=== PATIENT | female | born 1970 | race Caucasian/White ===

== ENCOUNTER 2016-11-25 21:04 | Emergency (ER) | payer BC, MEDICAID ==
[2016-11-25 21:12] VITALS: TEMP 97.5
[2016-11-25 21:13] VITALS: BMI 34.7
--- NOTE | 2016-11-25 21:22 | EDPRACDOC ---
- General Information Chief Complaint: Upper Extremity Injury Stated Complaint: ARM PAIN Time Seen by Provider: 11/25/16 21:16 Home Medications: Home Medications Amlodipine [Norvasc] 10 mg PO DAILY 08/30/15 Levothyroxine Sodium [Synthroid] 50 mcg PO DAILY 08/30/15 Metformin HCl 500 mg PO BID 08/30/15 Acetaminophen Ex Str Tablet [TYLENOL EXTRA STRENGTH Tablet] 500 - 1,000 mg PO Q6H PRN 10/28/15 Cholecalciferol (Vitamin D3) [Vitamin D] 5,000 unit PO DAILY 10/28/15 Ibuprofen Tablet [Advil] 200 - 400 mg PO Q6H PRN 10/31/15 Oxycodone Immediate Release [Oxycodone Immediate Release (OxyIR)] 1 - 2 tab PO Q6H PRN 10/31/15 Promethazine [Phenergan] 25 mg PO Q4H PRN 10/31/15 Cyclobenzaprine HCl [Flexeril] 10 mg PO TID PRN #20 tablet 11/25/16 Hydrocodone Bit/Acetaminophen [Hydrocodon-Acetaminophen 5-325] 1 tab PO Q6 PRN # 20 tab 11/25/16 Prednisone [Deltasone, Orasone] 40 mg PO DAILY 5 Days 11/25/16 Allergies/Adverse Reactions: Allergies Allergy/AdvReac Type Severity Reaction Status Date / Time moxifloxacin HCl Allergy Rash-Genera Verified 10/31/15 06:34 [From Avelox] lized Penicillins Allergy Rash-Genera Verified 10/31/15 06:34 lized - History of Present Illness Onset: 2 DAYS HPI: PT COMPLAINS OF THROBBING, ACHING, AND SHARP PAIN FROM LEFT NECK RADIATING DOWN TO LEFT HAND, PAIN IS WORSE WITH ANY MOVEMENT OF THE ARM, NO KNOWN INJURY, NO FEVER OR CHILLS, NO N/V/D, USING OTC MEDS WITHOUT RELIEF. Description: Reports: At Rest Location: Reports: Left, Lateral, Anterior Circumstances: Reports: Spontaneous Relevant History: Reports: None Dominant Hand: Right Pain Severity: Severe Able to Move Shoulder?: Yes Associated Signs & Symptoms: Reports: Swelling, Neck pain, Arm pain, Elbow pain. Denies: Abrasion, Numbness, Chest pain ED Past Medical History - History Reviewed Yes Nurses notes reviewed and agree except as marked - Patient Medical History Cardiac History: Reports: Hypertension Musculoskeletal History: Reports: Arthritis Systemic History: Reports: Diabetes, Hypothyroidism Surgical History: Reports: Cholecystectomy (2008) - Family Medical History Reports: Hypertension (PARENTS), Diabetes (GP), Stroke (FATHER). Denies: Cancer (MATERNAL GP UNKNOWN TYPE), Cardiac Disorders - Social Medical History Smoking Status: Never smoker EDM Review of Systems - Review of Systems Neurological: negative: Dizziness, Numbness, Weakness Musculoskeletal: Elbow, Forearm, Hand, Shoulder Integumentary: No Symptoms Reported - Physical Exam Constitutional: Alert (Awake), No apparent distress Oriented to: Time, Person, Place Last recorded Vital Signs: Last Vital Signs Temp 97.5 F 11/25/16 21:12 Pulse 98 11/25/16 21:12 Resp 18 11/25/16 21:12 BP 171/97 11/25/16 21:12 Pulse Ox 99 11/25/16 21:12 Oxygen Pulse Oxygen Saturation 99 O2 Device Oxygen Flow Rate Fraction of Inspired Oxygen ( FIO2) - HEENT Head: Normal ( normocephalic) - Integumentary Skin: Normal, Warm, Dry Lymphatics: Normal (no adenopathy) - Neurologic Memory Impaired: Normal Motor Function: Normal (Normal tone, Pulses 2+ No cyanosis or edema, FROM) Cranial Nerve: Normal (CN II-X11 intact sensation, strength 5/5) Cerebellar: Normal Mood Description: Normal Perception: Normal ED Shoulder Problem Exam - Musculoskeletal Clavicle: Normal, Tender. negative: Swelling, Ecchymosis, Deformity Shoulder: Limited ROM, Tender. negative: Swelling, Ecchymosis, Deformity, Dislocation Arm: Moderate Tenderness. negative: Swelling, Deformity Distal Function/Circulation: Normal, Capillary Refill. negative: Motor Deficit , Pulse Deficit, Sensory Deficit - Differential Diagnosis Arthritis, Cervical disc disease, Impingement syndrome - Diagnostic Imaging C-SPINE Image interpreted by: Radiologist CERVICAL SPINE - COMPLETE 4+ VIEW COMPARISON: None. FINDINGS: Prevertebral soft tissue calcification anterior to the C1 and C2 vertebra, differential diagnostic considerations include heterotopic ossification or calcific tendinitis of the longus colli muscle. Ossification of the anterior longitudinal ligament is less likely given the distance between the vertebra and the calcification. No vertebral subluxation is observed. Intervertebral disc spaces are maintained. Anterior intervertebral spurring at C5-6 and C6-7 with posterior osseous ridging at C4-5 and C5-6. Uncinate and facet spurring are thought to be present at the C3-4 and C4-5 levels, probably causing osseous foraminal stenosis. No fracture identified. IMPRESSION: 1. Considerable cervical spondylosis with uncinate and facet spurring believed to be causing osseous foraminal stenosis at C3-4 and C4-5 bilaterally. There is posterior osseous ridging at C4-5 and C5-6. 2. Abnormal prevertebral soft tissue calcification anterior to the C1 and C2 vertebra. Top differential diagnostic considerations are prevertebral heterotopic calcification (as can be encountered in setting of radiation therapy or prior remote inflammation) or calcific tendinitis of the longus colli muscle. Decision Time to Discharge: 22:12 - Departure Disposition: Home Condition: Stable Final Diagnosis: Cervical radiculopathy Instructions: Cervical Radiculopathy (ED) Education/Counseling Given To: Patient Education/Counseling Given Regarding: Diagnosis, Treatment, Prognosis, Follow Up Referrals: Jamila Corona PA [Primary Care Provider] - One Week Mark Hu DO [Staff Physician] - One Week Prescriptions: Cyclobenzaprine HCl [Flexeril] 10 mg PO TID PRN #20 tablet PRN Reason: Muscle Spasms Hydrocodone Bit/Acetaminophen [Hydrocodon-Acetaminophen 5-325] 1 tab PO Q6 PRN # 20 tab PRN Reason: Pain Prednisone [Deltasone, Orasone] 40 mg PO DAILY 5 Days Forms: Excuse Note Additional Instructions: APPLY WARM COMPRESSES TO AREAS OF SORENESS 20 MINS AT A TIME 4 - 5 TIMES DAILY NEEDED FOR PAIN, WEAR SLING NEEDED FOR COMFORT. ED Neck Injury Exam - Neurologic Oriented to: Time, Person, Place Mood Description: Normal - HEENT Neck Meningeal: Normal. no: Meningeal Signs, Adenopathy, Thyromegaly - Musculoskeletal Distal Function: Normal, Capillary Refill. negative: Motor Deficit, Pulse Deficit, Sensory Deficit NV Function: Normal - Integumentary Skin: Normal Lymphatics: Normal
[2016-11-25] MEDS ORDERED: HYDROCODONE 5 MG/ACETAMIN 325 MG TAB PO ONE (21:28)
--- NOTE | 2016-11-25 22:09 | DIRPT ---
CLINICAL DATA: Left neck and arm pain starting on Raphael, progressively worsening. No injury. EXAM: CERVICAL SPINE - COMPLETE 4+ VIEW COMPARISON: None. FINDINGS: Prevertebral soft tissue calcification anterior to the C1 and C2 vertebra, differential diagnostic considerations include heterotopic ossification or calcific tendinitis of the longus colli muscle. Ossification of the anterior longitudinal ligament is less likely given the distance between the vertebra and the calcification. No vertebral subluxation is observed. Intervertebral disc spaces are maintained. Anterior intervertebral spurring at C5-6 and C6-7 with posterior osseous ridging at C4-5 and C5-6. Uncinate and facet spurring are thought to be present at the C3-4 and C4-5 levels, probably causing osseous foraminal stenosis. No fracture identified. IMPRESSION: 1. Considerable cervical spondylosis with uncinate and facet spurring believed to be causing osseous foraminal stenosis at C3-4 and C4-5 bilaterally. There is posterior osseous ridging at C4-5 and C5-6. 2. Abnormal prevertebral soft tissue calcification anterior to the C1 and C2 vertebra. Top differential diagnostic considerations are prevertebral heterotopic calcification (as can be encountered in setting of radiation therapy or prior remote inflammation) or calcific tendinitis of the longus colli muscle. Electronically Signed By: Chay Watt M.D. On: 11/25/2016 22:06
[2016-11-25 22:47] VITALS: BP 141/87; PULSE 76
== END 2016-11-25 22:28 | disposition home or self-care (01) ==
LOC: EDMC 21:04
DX: M54.12 Radiculopathy, cervical region (principal)
CPT/HCPCS: 72050; 99283; J3490

== ENCOUNTER 2016-11-28 20:27 | Emergency (ER) | payer MEDICAID ==
[2016-11-28 20:35] VITALS: BP 163/87; PULSE 80; TEMP 98; BMI 34.0
--- NOTE | 2016-11-28 21:03 | EDPRACDOC ---
- General Information Chief Complaint: Shoulder Pain Stated Complaint: LEFT ARM PAIN Time Seen by Provider: 11/28/16 20:50 Information Source: Patient Mode of Arrival: Car Home Medications: Home Medications Amlodipine [Norvasc] 10 mg PO DAILY 08/30/15 Levothyroxine Sodium [Synthroid] 50 mcg PO DAILY 08/30/15 Metformin HCl 500 mg PO BID 08/30/15 Acetaminophen Ex Str Tablet [TYLENOL EXTRA STRENGTH Tablet] 500 - 1,000 mg PO Q6H PRN 10/28/15 Cholecalciferol (Vitamin D3) [Vitamin D] 5,000 unit PO DAILY 10/28/15 Ibuprofen Tablet [Advil] 200 - 400 mg PO Q6H PRN 10/31/15 Oxycodone Immediate Release [Oxycodone Immediate Release (OxyIR)] 1 - 2 tab PO Q6H PRN 10/31/15 Promethazine [Phenergan] 25 mg PO Q4H PRN 10/31/15 Cyclobenzaprine HCl [Flexeril] 10 mg PO TID PRN #20 tablet 11/25/16 Hydrocodone Bit/Acetaminophen [Hydrocodon-Acetaminophen 5-325] 1 tab PO Q6 PRN # 20 tab 11/25/16 Prednisone [Deltasone, Orasone] 40 mg PO DAILY 5 Days 11/25/16 Diazepam [Valium] 5 mg PO TID #20 tablet 11/28/16 Oxycodone Immediate Release [Oxycodone Immediate Release (OxyIR)] 5 - 10 mg PO Q6H PRN #15 tab 11/28/16 Allergies/Adverse Reactions: Allergies Allergy/AdvReac Type Severity Reaction Status Date / Time moxifloxacin HCl Allergy Rash-Genera Verified 11/28/16 20:42 [From Avelox] lized Penicillins Allergy Rash-Genera Verified 11/28/16 20:42 lized - History of Present Illness Onset: 5 days HPI: PT STATES SEEN HERE 2-3 DAYS AGO FOR SAME LEFT SIDED NECK PAIN THAT RADIATES DOWN HER LEFT ARM FEELS LIKE A PULLING PAIN ON LEFT SIDE. Description: Reports: With Use, At Rest Location: Reports: Left, Lateral Circumstances: Reports: Spontaneous Relevant History: Reports: None Tetanus Up To Date?: No Dominant Hand: Right Pain Severity: Moderate Able to Move Shoulder?: Yes Associated Signs & Symptoms: Reports: Arm pain (LEFT) ED Past Medical History - History Reviewed Yes Nurses notes reviewed and agree except as marked Travel Outside of [place] in the Last 3 Months?: No - Patient Medical History Cardiac History: Reports: Hypertension, Hypercholesterolemia Musculoskeletal History: Reports: Arthritis Psychological History: Denies: Depression Systemic History: Reports: Diabetes, Hypothyroidism Surgical History: Reports: Appendectomy, Cholecystectomy (2008) - Family Medical History Reports: Hypertension (PARENTS), Diabetes (GP), Stroke (FATHER). Denies: Cancer (MATERNAL GP UNKNOWN TYPE), Cardiac Disorders - Social Medical History Smoking Status: Never smoker ETOH: None Substance Abuse: None Lives With: Other Lives In: Home EDM Review of Systems - Review of Systems ROS Negative Except as Marked: Yes All systems reviewed and were negative except as marked Constitutional: No Symptoms Reported. negative: Fever, Chills, Weakness, Fatigue, Loss of Appetite Eyes: No Symptoms Reported. negative: Redness, Blurred Vision, Double Vision, Discharge, Pain, Light Sensitive, Photophobia Ears: No Symptoms Reported. negative: Pain, Hearing Loss, Drainage, Ear Pulling Throat: No Symptoms Reported. negative: Pain, Swelling Nose: No Symptoms Reported. negative: Congestion, Bleeding, Discharge, Injection, Swelling, Deformity, Ecchymosis, Tender, Abrasion, Laceration Mouth: No Symptoms Reported. negative: Pain, Drooling Respiratory: No Symptoms Reported. negative: Cough, Brassy Cough, Barky Cough, Shortness of Breath, Wheezing, Hemoptysis Cardiovascular: No Symptoms Reported. negative: Chest Pain, Palpitations, Syncope, Edema, Orthopnea, PND, Skin Mottling, Cyanosis Gastrointestinal: No Symptoms Reported. negative: Pain, Constipation, Nausea, Vomiting, Diarrhea, Melena, Formula Intolerance Genitourinary: No Symptoms Reported. negative: Dysuria, Hematuria, Frequency, Discharge, Bleeding, Testicular Pain, Neurological: No Symptoms Reported. negative: Headache, Dizziness, Seizure, Numbness, Weakness, Speech Difficulty, Gait Difficulty Musculoskeletal: Neck (LEFT SIDE RADIATES INTO LEFT ARM, WORSE WITH ROM AND TURNING HEAD). negative: Arm, Ankle, Back, Chestwall, Elbow, Forearm, Femur, Foot, Hand, Hip, Knee, Leg, Pelvis, Ribs, Shoulder, Wrist Integumentary: No Symptoms Reported. negative: Itching, Rash, Bruising, Wound Allergic/Immunologic: No Symptoms Reported. negative: Hives, Itching Hematologic: No Symptoms Reported. negative: Lymphadenopathy, Easy Bruising, Easy Bleeding Endocrine: No Symptoms Reported. negative: Weight Gain, Weight Loss Psychiatric: No Symptoms Reported. negative: Anxiety, Depression, Hallucinations, Insomnia, Suicidal - Physical Exam Constitutional: Alert (Awake), No apparent distress Oriented to: Time, Person, Place Last recorded Vital Signs: Last Vital Signs Temp 98.0 F 11/28/16 20:34 Pulse 80 11/28/16 20:34 Resp 18 11/28/16 20:34 BP 163/87 11/28/16 20:34 Pulse Ox 100 11/28/16 20:34 Oxygen Pulse Oxygen Saturation 100 O2 Device Room Air Oxygen Flow Rate Fraction of Inspired Oxygen ( FIO2) - HEENT Head: Normal ( normocephalic) Eye Exam: Normal (PERRL, EOMI, Sclera white) Oropharynx: Normal (Pharynx:Moist without exudate,Gums-no swelling) Tympanic Membrane: Normal ENT EAC: Normal TMJ: Normal Nose: No Symptoms Reported (septum midline) Neck: Normal (FROM, trachea at midline) - Respiratory/Cardiovascular Respiratory: Normal - CTA (BBS clear to auscultation without adventitious sounds ) Cardiovascular: Normal (RRR without murmur, gallop or rub) - GI Auscultation: Normal (NABS) Palpation: Normal (Soft,No rebound or guarding, non distended) Tenderness: Non tender Theodore's Sign: Negative - Musculoskeletal Back: Normal (Non-Tender) Extremities: Normal (Normal tone, Pulses 2+ No cyanosis or edema, FROM) - Integumentary Skin: Normal, Warm, Dry Lymphatics: Normal (no adenopathy) - Neurologic Memory Impaired: Normal Motor Function: Normal (Normal tone, Pulses 2+ No cyanosis or edema, FROM) Cranial Nerve: Normal (CN II-X11 intact sensation, strength 5/5) Cerebellar: Normal Mood Description: Normal Perception: Normal ED Shoulder Problem Exam - Musculoskeletal Clavicle: Normal Shoulder: Tender Drop arm test: Negative Impingement test: Negative Arm: Normal Distal Function/Circulation: Normal - Other Exam Other Exam Findings: TENDERNESS TO PALPATION LEFT PARASPINAL MUSCLES OF CERVICAL REGION. - Differential Diagnosis Contusion, Impingement syndrome, Sprain, Other (CERVICAL RADICULOPATHY) - Diagnostic Imaging CSPINE Image interpreted by: Radiologist IMPRESSION: 1. Considerable cervical spondylosis with uncinate and facet spurring believed to be causing osseous foraminal stenosis at C3-4 and C4-5 bilaterally. There is posterior osseous ridging at C4-5 and C5-6. 2. Abnormal prevertebral soft tissue calcification anterior to the C1 and C2 vertebra. Top differential diagnostic considerations are prevertebral heterotopic calcification (as can be encountered in setting of radiation therapy or prior remote inflammation) or calcific tendinitis of the longus colli muscle. Decision Time to Discharge: 21:03 - Departure Disposition: Home Condition: Stable Final Diagnosis: Cervical radiculopathy, Cervical paraspinal muscle spasm Instructions: RICE: Routine Care for Injuries, Spasmodic Torticollis (ED) Education/Counseling Given To: Patient Education/Counseling Given Regarding: Diagnosis, Treatment, Prognosis, Follow Up Referrals: Ivanna Del Cid MD [NonStaff] - One Week Elvis Andrade MD [Staff Physician] - One Week Prescriptions: Diazepam [Valium] 5 mg PO TID #20 tablet Oxycodone Immediate Release [Oxycodone Immediate Release (OxyIR)] 5 - 10 mg PO Q6H PRN #15 tab PRN Reason: Pain Additional Instructions: RETURN FOR WORSE OR DIFFERENT SYMPTOMS.
== END 2016-11-28 21:13 | disposition home or self-care (01) ==
LOC: EDMC 20:27
DX: M54.12 Radiculopathy, cervical region (principal); M62.838 Other muscle spasm; I10 Essential (primary) hypertension; E11.9 Type 2 diabetes mellitus without complications; E03.9 Hypothyroidism, unspecified; E78.00 Pure hypercholesterolemia, unspecified; Z79.899 Other long term (current) drug therapy
CPT/HCPCS: 99283